=== PATIENT | female | born 1990 | race Caucasian/White ===

== ENCOUNTER 2019-09-07 05:39 | Day surgery (SDC) | payer OTHER ==
[2019-08-31 11:01] LABS: BASOPHILS # (AUTO) 0.1 X10'3 (0-0.2); BASOPHILS % (AUTO) 0.7 % (0-1); EOSINOPHILS # (AUTO) 0.1 X10'3 (0-0.9); EOSINOPHILS % (AUTO) 1.3 % (0-6); LYMPHOCYTES # (AUTO) 1.7 X10'3 (1.1-4.8); LYMPHOCYTES % (AUTO) 20.3 % (21-51); MEAN CORPUSCULAR HEMOGLOBIN 29.7 PG (27.0-31.0); MEAN CORPUSCULAR HGB CONC 33.7 g/dL (33.0-36.5); MEAN PLATELET VOLUME 8.2 FL (7.4-10.4); MONOCYTES # (AUTO) 0.6 X10'3 (0-0.9); MONOCYTES % (AUTO) 7.2 % (2-12); NEUTROPHILS % (AUTO) 70.5 % (42-75); PRE OP HEMATOCRIT 37.4 % (35.0-45.0); PRE OP HEMOGLOBIN 12.6 g/dL (12.0-16.0); PRE OP PLATELET COUNT 288 X10'3 (140-440); RED BLOOD COUNT 4.25 X10'6 (4.20-5.60); RED CELL DISTRIBUTION WIDTH 13.4 % (11.5-14.5)
[2019-09-07] VITALS (8 sets, daily range): BP systolic 103–113; BP diastolic 62–67
[~2019-09-07] VITALS: Ht 160 cm; Wt 61.2 kg
[~2019-09-07 05:39] MED LIST: ALPR-623 PO; ASCO250T48 PO; CLON-473 PO; METHYLFOLATE PO; OXCA300T16 PO; famotidine 20mg tablet PO ONE; ringers solution, lacted 1,000 ML IV SCH
[2019-09-07] MEDS ORDERED: LIDOcaine 1% (10mg/ml) 2ml vial ONE (06:19)
[2019-09-07] MEDS ORDERED: ceFAZolin 2gm in dextrose, iso 50 ML IV ONE (06:25)
[2019-09-07] MEDS ORDERED: midazolam 2 mg/2 ml injection ONE (07:06)
[2019-09-07] MEDS ORDERED: fentaNYL/PF 50MCG/1 ML 2ML syringe ONE ×2 (07:06→07:50)
[2019-09-07] MEDS ORDERED: BUPIVAcaine/PF 2.5 mg/ml (0.25%) 30ml vial ONE (07:14)
[2019-09-07] MEDS ORDERED: sevoflurane 250ml liquid IH ONE (07:15)
[2019-09-07] MEDS ORDERED: ketorolac trometh. 30mg/ml inj. ONE (07:15)
[2019-09-07] MEDS ORDERED: ringers solution, lacted 1,000 ML IV SCH (07:31)
[2019-09-07] MEDS ORDERED: morphine 2 MG/ML inj. syringe IV PRN (07:35)
[2019-09-07] MEDS ORDERED: proCHLORperazine 10 MG/2 ml inj IV PRN (07:35)
[2019-09-07] MEDS ORDERED: meperidine/PF 25mg/ml syringe IV PRN ×3 (07:35)
[2019-09-07] MEDS ORDERED: ondansetron/PF 4mg/2ml inj IV PRN (07:35)
[2019-09-07] MEDS ORDERED: morphine 4 MG/ML inj SYRINge IV PRN (07:35)
[2019-09-07] MEDS ORDERED: LIDOcaine 2% (20mg/ml) 5ml vial ONE (07:50)
[2019-09-07] MEDS ORDERED: propofol inj 20 ML IV ONE (07:50)
[2019-09-07] MEDS ORDERED: ondansetron/PF 4mg/2ml inj ONE (07:50)
[2019-09-07] MEDS ORDERED: dexamethasone sod phosphate 4mg/ml inj. ONE (07:50)
--- NOTE | 2019-09-07 08:20 | NUR ---
Received from OR via BED, accompanied by Anesthesiologist DR CUMMINS and report given by Anesthesiolgist. PATIENT A&OX4, DENIES PAIN, V/S WNL, NEUROVASCULAR CHECKS INTACT, 20G PIV RUE, SCD ON, DRESSING TO LEFT ARM CDI ELEVATED WITH ICEBAG APPLIED.
[2019-09-07] MEDS ORDERED: HYDROcodone/acetaminophen 10/325mg tab PO PRN (08:50)
--- NOTE | 2019-09-07 09:20 | NUR ---
PATIENT A&OX4, DENIES PAIN, V/S WNL, NEUROVASCULAR CHECKS INTACT, 20G PIV RUE D/C, SCD OFF, DRESSING TO LEFT ARM CDI ELEVATED WITH ICEBAG APPLIED. HARDWARE GIVEN TO PATIENT. I HAVE REVIEWED D/C INSTRUCTIONS WITH PATIENT AND FAMILY AND THEY HAVE VERBALIZED UNDERSTANDING. PATIENT D/C HOME WITH ALL BELONGINGS AND FAMILY GAVE TRANSPORT HOME.
== END 2019-09-07 09:20 | disposition home or self-care (01) ==
LOC: PAS 05:39
PROVIDERS: ATTEND Orthopaedic Surgery
DX: T84.84XA Pain due to internal orthopedic prosthetic devices, implants and grafts, initial encounter (principal); G90.09 Other idiopathic peripheral autonomic neuropathy; F32.9 Major depressive disorder, single episode, unspecified; F41.9 Anxiety disorder, unspecified; Z87.81 Personal history of (healed) traumatic fracture; Z98.890 Other specified postprocedural states; Z72.89 Other problems related to lifestyle; Z79.899 Other long term (current) drug therapy; Z11.59 Encounter for screening for other viral diseases; Y83.8 Other surgical procedures as the cause of abnormal reaction of the patient, or of later complication, without mention of misadventure at the time of the procedure; Y92.89 Other specified places as the place of occurrence of the external cause
CPT/HCPCS: 20680; 36415; 85025; J1100; J1885; J2001; J2175; J2250; J2270; J2405; J2704; J3010; J3490; J7120; U0003; A4215; A4618; A6449; A7000